=== PATIENT | male | born 1945 | race Caucasian/White ===

== ENCOUNTER 2017-09-12 21:20 | Emergency (ER) | payer BC, MEDICARE ==
[2017-09-13 00:43] VITALS: BP 119/58
--- NOTE | 2017-09-13 06:15 | ED ---
Rachel Johns Nilda, scribed for Zbigniew Kearney MD on 09/13/17 at 0020 . Abdominal Pain/Male - HPI Summary HPI Summary: This patient is a 72 year old M presenting to [facility] accompanied by with a chief complaint of stabbing intermittent swelling and pain in groin that radiates to the penis for several weeks and was exacerbated today. The patient rates the pain 7/10 in severity at its worse but patient currently has no pain. Symptoms aggravated by movement and alleviated by rest. Patient reports fever, but denies chills, burning urination, abnormal bowels, and N/V. Patient had CT scan this morning at [facility] and has not yet seen results. - History of Current Complaint Chief Complaint: EDAbdPain Stated Complaint: PAIN & SWELLING IN RT ABD Time Seen by Provider: 09/13/17 00:14 Hx Obtained From: Patient Onset/Duration: Gradual Onset, Lasting Weeks, Still Present Timing: Intermittent Severity Initially: Severe Severity Currently: None Pain Intensity: 7 Pain Scale Used: 0-10 Numeric Location: Groin Radiates: Yes Radiates to: Other - penis Character: Sharp Aggravating Factor(s): Movement Alleviating Factor(s): Other: - rest Associated Signs And Symptoms: Positive: Other - fever; Patient denies chills, burning urination, abnormal bowels, and N/V. - Allergies/Home Medications Allergies/Adverse Reactions: Allergies Allergy/AdvReac Type Severity Reaction Status Date / Time Atorvastatin [From Lipitor] Allergy Unknown Unknown Verified 09/12/17 21:33 Reaction Details Cephalexin Allergy Unknown Unknown Verified 09/12/17 21:33 Reaction Details Cholestyramine Allergy Unknown Unknown Verified 09/12/17 21:33 [From Questran] Reaction Details Fenofibrate [From Tricor] Allergy Unknown Unknown Verified 09/12/17 21:33 Reaction Details Iodinated Contrast Media Allergy Hives Verified 09/12/17 21:33 [IV CONTRAST DYE] Gabapentin AdvReac Intermediate Muscle Ache Verified 09/12/17 21:33 Pravastatin AdvReac Unknown Pain Verified 09/12/17 21:33 Simvastatin [From Zocor] AdvReac Unknown Pain Verified 09/12/17 21:33 SEASONAL Allergy SNEEZING, Uncoded 09/12/17 21:33 HAYFEVER/ENVIRONMENTAL PMH/Surg Hx/FS Hx/Imm Hx Endocrine/Hematology History: Reports: Hx Anticoagulant Therapy - low dose ASA Denies: Hx Diabetes Cardiovascular History: Reports: Hx Coronary Artery Disease - CHOLESTEROL CONTROL WITH MEDICATION, Hx Hypercholesterolemia, Hx Valvular Heart Disease - [place] VALVE Denies: Hx Hypertension, Hx Pacemaker/ICD Comment Only: Other Cardiovascular Problems/Disorders - CRAMPS AT NIGHT Respiratory History: Reports: Hx Sleep Apnea - new CPAP user, some initial difficulty w/PAP therapy Denies: Hx Asthma GI History: Reports: Hx Gastroesophageal Reflux Disease - NO MEDICATION, Hx Hiatal Hernia, Hx Irritable Bowel - HISTORY OF - RESOLVED ON ITS ON, Hx Ulcer - DUODENUAL ULCER YEARS AGO, PRESENTLY HEALED, Other GI Disorders - ulcers History: Reports: Hx Kidney Stones - PRESENTLY HAS STONES WITH NO PROBLEMS Musculoskeletal History: Reports: Hx Arthritis - GENERALIZED, Hx Tendonitis Sensory History: Reports: Hx Cataracts - HISTORY OF, Hx Contacts or Glasses - GLASSES, Hx Hearing Aid - BILATERAL Opthamlomology History: Reports: Hx Cataracts - HISTORY OF, Hx Contacts or Glasses - GLASSES Neurological History: Reports: Hx Migraine - CONTROL WITH MEDICATION Psychiatric History: Denies: Hx Panic Disorder - Cancer History Cancer Type, 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 - Surgical History Surgery Procedure, Year, and Place: TONSILLECTOMY, 1949, [place]/ANGIOGRAM 5- 10 YEARS AGO, [place]/CYSTOSCOPY WITH LITHOTRIPSY, [facility]/CYSTOSCOPY FOR KIDNEY STONES, [facility]/2011 BILATERAL CATARACT EXTRACTION WITH IOL IMPLANTS, [facility]/RT KNEE MENISCUS REPAIR Hx Anesthesia Reactions: No Infectious Disease History: No Infectious Disease History: Denies: Traveled Outside the [place] in Last 30 Days - Family History Known Family History: Positive: Hypertension, Diabetes - Social History Alcohol Use: Rare Substance Use Type: Reports: None Smoking Status (MU): Never Smoked Tobacco Review of Systems Positive: Fever. Negative: Chills Positive: Other - negative abnormal bowels. Negative: Vomiting, Nausea Positive: other - swelling and pain in groin that radiates to penis. Negative: burning All Other Systems Reviewed And Are Negative: Yes Physical Exam Triage Information Reviewed: Yes Vital Signs On Initial Exam: Initial Vitals Temp Pulse Resp BP Pulse Ox 98.0 F 68 16 132/79 99 09/12/17 21:27 09/12/17 21:27 09/12/17 21:27 09/12/17 21:27 09/12/17 21:27 Vital Signs Reviewed: Yes Appearance: Positive: Well-Appearing, No Pain Distress Skin: Positive: Warm, Skin Color Reflects Adequate Perfusion, Dry Head/Face: Positive: Normal Head/Face Inspection Eyes: Positive: EOMI, YG ENT: Positive: Normal ENT inspection Neck: Positive: Supple, Nontender Respiratory/Lung Sounds: Positive: Clear to Auscultation, Breath Sounds Present Cardiovascular: Positive: RRR, Other - femoral pulses palpable Abdomen Description: Positive: Soft, Other: - Mild tenderness to RLQ, just superior to where femoral artery is palpable; there is no mass felt while laying flat but when standing, there is a bulge that is reducible. Bowel Sounds: Positive: Present Male Genital Exam: Positive: other - scrotal exam normal; testicles are non swollen and non-tender Musculoskeletal: Positive: Normal, Strength/ROM Intact Neurological: Positive: Normal, Sensory/Motor Intact, Alert, Oriented to Person Place, Time Psychiatric: Positive: Affect/Mood Appropriate - [place] Coma Scale Coma Scale Total: 15 Diagnostics - Vital Signs Vital Signs Temp Pulse Resp BP Pulse Ox 09/12/17 23:21 59 100 09/12/17 23:19 127/59 09/12/17 21:27 98.0 F 68 16 132/79 99 - Laboratory Lab Statement: Any lab studies that have been ordered have been reviewed, and results considered in the medical decision making process. Abdominal Pain Fem Course/Dx - Course Course Of Treatment: BP noted and advised to follow up with PCP. Medication and allergies reviewed. ON EXAM, THERE IS A REDUCABLE RT INGUINAL HERNIA THAT IS AT PATIENT'S SITE OF PAIN. F/U SURGERY; RETURN IF WORSE. THIS WAS ALL DISCUSSED WITH THE PATIENT AND HIS , KOFI. - Diagnoses Provider Diagnoses: Right inguinal hernia, Abdominal pain Discharge - Discharge Plan Condition: Stable Disposition: HOME Patient Education Materials: Inguinal Hernia (ED), Abdominal Pain (ED) Referrals: [facility] [Provider Group] Rory Bruce MD [Primary Care Provider] - Avinash Thomson MD [Medical Doctor] - Additional Instructions: FOLLOW UP WITH YOUR PRIMARY CARE DOCTOR AND SURGERY. CALL SURGERY, DR THOMSON, THIS MORNING FOR YOUR RIGHT INGUINAL HERNIA. RETURN TO THE EMERGENCY DEPARTMENT FOR ANY WORSENING OF YOUR CONDITION; PAIN, VOMITING, FEVER, YOU FEEL ILL OR QUESTIONS OR CONCERNS. The documentation as recorded by the scribe, Hermelinda Ramos accurately reflects the service I personally performed and the decisions made by me, Zbigniew Kearney MD.
== END 2017-09-13 00:43 | disposition home or self-care (01) ==
LOC: ED 21:20
DX: K40.90 Unilateral inguinal hernia, without obstruction or gangrene, not specified as recurrent (principal); R10.31 Right lower quadrant pain; R50.9 Fever, unspecified; I25.10 Atherosclerotic heart disease of native coronary artery without angina pectoris; Z79.82 Long term (current) use of aspirin; E78.00 Pure hypercholesterolemia, unspecified; K21.9 Gastro-esophageal reflux disease without esophagitis; Z87.442 Personal history of urinary calculi; G43.909 Migraine, unspecified, not intractable, without status migrainosus; Z85.828 Personal history of other malignant neoplasm of skin; Z98.42 Cataract extraction status, left eye; Z98.41 Cataract extraction status, right eye; Z96.1 Presence of intraocular lens; Z88.8 Allergy status to other drugs, medicaments and biological substances; Z88.1 Allergy status to other antibiotic agents; Z91.041 Radiographic dye allergy status
CPT/HCPCS: 99282

== ENCOUNTER 2017-09-19 06:41 | Day surgery (SDC) | payer BC ==
[~2017-09-19 06:41] MED LIST: Buffered Lidocaine 0.9% SYRIN* 5 ML/SYR SYRINGE INTRADERM ONE; Buffered Lidocaine 0.9% SYRIN* 5 ML/SYR SYRINGE ONE; Levofloxacin 750 MG IVPREMIX(* 750 MG/150 ML BAG ONE
[2017-09-19] MEDS ORDERED: Bupivacaine 0.25% SDV* 30 ML ONE (07:18)
[2017-09-19] MEDS ORDERED: Lidocaine 1% INJ* 10 MG/ML 30 ML SDV ONE (07:19)
[2017-09-19] MEDS ORDERED: Lidocaine 1% MPF wEPI 200,000* 30 ML SDV ONE (07:19)
[2017-09-19] MEDS ORDERED: Bupivacaine 0.5% SDV PF* 30 ML VIAL ONE (07:19)
[2017-09-19] MEDS ORDERED: fentaNYL* 50 MCG/ML 2 ML VIAL (100 MCG VIAL) ONE (07:49)
[2017-09-19] MEDS ORDERED: Propofol* 10 MG/ML 20 ML BTL IV PUSH ONE (07:58)
[2017-09-19] MEDS ORDERED: oxyCODONE/Acetamin 5/325 MG* TAB PO PRN ×2 (08:26→09:38)
[2017-09-19] MEDS ORDERED: Ketorolac INJ* 30 MG/ML 1 ML VIAL IV PRN (08:26)
[2017-09-19 10:09] VITALS: BP 117/60
--- NOTE | 2017-09-20 06:02 | OP ---
CC: [facility]; Dr. Rory Bruce MD, Family Medicine* OPERATIVE REPORT: DATE OF OPERATION: 09/19/17 - SDS. DATE OF : 41. SURGEON: Avinash Thomson MD. JUICE MIXER: SEDRICK Menard ANESTHESIOLOGIST: Dr. Cottrell. ANESTHESIA: Local with monitored anesthesia care. PRE-OP DIAGNOSIS: Right inguinal hernia. POST-OP DIAGNOSIS: Right indirect inguinal hernia. OPERATIVE PROCEDURE: Open repair with Covidien ProGrip polyester mesh of indirect right inguinal hernia. ESTIMATED BLOOD LOSS: Minimal. WOUND CLASSIFICATION: 1. COMPLICATIONS: None. SPECIMENS: None. DRAINS: None. 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 DESCRIPTION OF PROCEDURE: Written and informed consent was obtained, the right groin was marked with indelible ink and preoperative antibiotics were administered. The patient was taken to the operating room and placed in a supine position. Sequential compression devices and a warming blanket were applied. Anesthesia was administered. The right groin and lower abdomen were prepped and draped in the usual sterile fashion. A time-out verification was completed. Initially, 1% lidocaine with 0.25% Marcaine was infiltrated in the right groin and an oblique incision was made several fingerbreadths above the right inguinal crease. The Piero's fascia was divided and the external oblique aponeurosis and external ring were identified. The fibers were opened and the underlying spermatic cord was encircled with a one-quarter inch Yessenia drain at the pubic tubercle. The underlying inguinal floor was identified. The direct space appeared to be normal without evidence of hernia. With careful dissection, I was able to identify an indirect hernia sac that was from the cord structures in usual fashion using combination of careful sharp and blunt dissection. Care was taken to prevent injury to the vas deferens and the vital cord structure as well. There was also a cord lipoma, which was excised up to its neck and removed but not sent for pathology. The internal ring appeared to be somewhat patulous. I was able to easily reduce the peritoneal sac up into the peritoneum without difficulty. The internal ring was then plicated with several 3-0 Polysorb sutures in preparation for mesh placement. The ProGrip Covidien mesh was then placed and sutured to pubic tubercle medially , the conjoint tendon superiorly, the musculature laterally with interrupted 0- Polysorb suture. It was secured to the inguinal ligament inferiorly with a running 0-Vicryl suture. The direct space was covered nicely and the indirect ring was reconstructed well and not felt to be an appropriate size. Hemostasis was assured. Additional Marcaine was infiltrated. The external oblique aponeurosis was closed with a running 0-Vicryl suture. The Piero's fascia was closed with interrupted 3-0 Vicryl suture. The skin was approximated with subcuticular 4-0 Vicryl suture. Steri-Strips and sterile dressings were applied. The patient tolerated the procedure well, was taken to the recovery room in stable condition. [id number]/[facility] #: [id number] TREY
== END 2017-09-19 10:15 | disposition home or self-care (01) ==
LOC: OR 06:41
PROVIDERS: ATTEND Surgery
DX: K40.90 Unilateral inguinal hernia, without obstruction or gangrene, not specified as recurrent (principal); G47.33 Obstructive sleep apnea (adult) (pediatric); E78.00 Pure hypercholesterolemia, unspecified; M19.90 Unspecified osteoarthritis, unspecified site; I73.00 Raynaud's syndrome without gangrene; N40.0 Benign prostatic hyperplasia without lower urinary tract symptoms; Z79.899 Other long term (current) drug therapy
CPT/HCPCS: C1781; J2001; J2704; J3010

== ENCOUNTER 2018-09-29 14:41 | Emergency (ER) | payer BC ==
[2018-09-29 16:09] VITALS: BP 143/71
--- NOTE | 2018-09-29 18:15 | UC ---
Skin Complaint HPI - HPI Summary HPI Summary: Patient had coronary angiogram done 4 days ago in [place]. Yesterday noticed left forearm redness, swelling, tenderness and some intermittent numbness/ tingling in his hand. Patient reports he called his interventional cardiologists office in [place] who advised him to call his local card assembler Dr. Segura. Dr. Segura told him to contact the office in [place] so patient decided to come here to . - History of Current Complaint Chief Complaint: UCUpperExtremity Time Seen by Provider: 09/29/18 17:49 Stated Complaint: ARM SWELLING Hx Obtained From: Patient Onset/Duration: Gradual Onset, Lasting Days - 1 DAY, Still Present Timing: Constant Onset Severity: Moderate Current Severity: Moderate Pain Intensity: 3 Pain Scale Used: 0-10 Numeric Location: Discrete - LEFT FOREARM Character: Swelling, Pain, Redness Aggravating Factor(s): Touch Alleviating Factor(s): Nothing - Allergy/Home Medications Allergies/Adverse Reactions: Allergies Allergy/AdvReac Type Severity Reaction Status Date / Time atorvastatin [From Lipitor] Allergy Pain Verified 09/29/18 16:17 cholestyramine Allergy Unknown Verified 09/29/18 16:17 [From Questran] Reaction Details fenofibrate [From Tricor] Allergy Muscle Ache Verified 09/29/18 16:17 gabapentin Allergy Muscle Ache Verified 09/29/18 16:17 pravastatin Allergy Pain Verified 09/29/18 16:17 simvastatin Allergy Pain Verified 09/29/18 16:17 sucrose [From Questran] Allergy Unknown Verified 09/29/18 16:17 Reaction Details IV contrast Allergy Hives Uncoded 09/29/18 16:17 SEASONAL Allergy SNEEZING, Uncoded 09/29/18 16:17 HAYFEVER/ENVIRONMENTAL Home Medications: Home Medications Amlodipine Besylate [Norvasc 2.5 mg tab] 2.5 mg PO DAILY 09/29/18 [History Confirmed 09/29/18] Review of Systems Constitutional: Negative Skin: Rash Respiratory: Negative Cardiovascular: Negative Gastrointestinal: Negative Musculoskeletal: Edema All Other Systems Reviewed And Are Negative: Yes PMH/Surg Hx/FS Hx/Imm Hx Cardiovascular History: Cardiac Disease GI/ History: Kidney Stones Other History Of: Anticoagulant Therapy - low dose ASA - Surgical History Surgical History: Yes Surgery Procedure, Year, and Place[facility] [place]- 10 [facility] A[facility], [place]/CYSTOSCOPY WITH LITHOTRIPSY, [facility]STOSCOPY FOR [facility]ID[facility] STONES, [facility]/2011 BILATERAL CATARACT EXTRACTION WITH IOL IMPLANTS, [facility]/RT KNEE MENISCUS REPAIR. 2017 inguinal hernia repair. 2018 vocal chord repair - Family History Known Family History: Positive: Hypertension, Diabetes - Social History Alcohol Use: Rare Substance Use Type: None Smoking Status (MU): Never Smoked Tobacco Physical Exam Triage Information Reviewed: Yes Appearance: Well-Appearing, No Pain Distress, Well-Nourished Vital Signs: Initial Vital Signs Temp 98.5 F 09/29/18 16:01 Pulse 81 09/29/18 16:01 Resp 16 09/29/18 16:01 BP 143/71 09/29/18 16:01 Pulse Ox 100 09/29/18 16:01 Vital Signs Reviewed: Yes Eyes: Positive: Conjunctiva Clear ENT: Positive: Hearing grossly normal Neck: Positive: Supple Respiratory: Positive: No respiratory distress, No accessory muscle use Cardiovascular: Positive: Pulses Normal Abdomen Description: Positive: Soft Musculoskeletal: Positive: Other: - LEFT FOREARM VOLAR SURFACE FIRM, SWOLLEN, TENDER AND ERYTHEMATOUS UP TO AC FOSSA Neurological: Positive: Alert Psychological: Positive: Age Appropriate Behavior Skin: Positive: Other - LEFT FOREARM EDEMA Course/Dx - Course Course Of Treatment: Unable to evaluate for clot here due to lack of ultrasound. Patient to go to [facility] by private car for further evaluation. - Diagnoses Provider Diagnoses: LEFT UPPER EXTREMITY EDEMA, ERYTHEMA - Physician Notification/Consults Discussed Patient Care With: Aamir Llanos - TO [facility] BY PRIVATE CAR Time Discussed With Above Provider: 18:10 Instructed by Provider To: MD Will See In ED Discharge - Sign-Out/Discharge Documenting (check all that apply): Patient Departure All imaging exams completed and their final reports reviewed: No Studies - Discharge Plan Condition: Stable Disposition: TRANS HIGHER LVL OF CARE FAC Referrals: Rory Bruce MD [Primary Care Provider] - If Needed Additional Instructions: YOU SHOULD BE EVALUATED FOR CLOT. GO DIRECTLY TO THE [facility] ED FROM HERE FOR FURTHER EVALUATION. YOU HAVE DECLINED TRANSFER TO THE ED BY AMBULANCE. BE ADVISED THAT BY NOT TRAVELING IN A MONITORED SETTING YOU COULD BE RISKING WORSENING OF YOUR CONDITION THAT COULD POSE A THREAT TO YOUR LIFE, HEALTH AND MEDICAL SAFETY. - Billing Disposition and Condition Condition: STABLE Disposition: Trans Higher Lvl of Care Fac
== END 2018-09-29 18:10 | disposition short-term general hospital (02) ==
LOC: UCEAST 14:41
DX: R60.0 Localized edema (principal); L53.9 Erythematous condition, unspecified; Z88.8 Allergy status to other drugs, medicaments and biological substances; Z91.09 Other allergy status, other than to drugs and biological substances; Z91.041 Radiographic dye allergy status
CPT/HCPCS: 99212; G0463

== ENCOUNTER 2018-09-29 19:10 | Emergency (ER) | payer BC ==
[2018-09-29 20:15] LABS: ABS Basophils 0 10^3/ul (0-0.2); ABS Eosinophils 0.1 10^3/ul (0-0.6); ABS Lymphocytes 2.1 10^3/ul (1.0-4.8); ABS Monocytes 0.6 10^3/ul (0-0.8); ABS Nucleated RBC 0 10^3/ul; Eosinophil % 1.6 % (0-6); Hematocrit 44 % (42-52); Hemoglobin 14.9 g/dl (14.0-18.0); Lymphocyte % 26.9 % (25-47); Mean Corpuscular HGB Conc 34 g/dl (31-36); Mean Corpuscular Hemoglobin 33 pg (27-31); Mean Corpuscular Volume 96 fL (80-94); Mean Platelet Volume 8.9 fL (7.4-10.4); Nucleated Red Blood Cells % 0.2; Platelet Count 163 10^3/ul (150-450); Red Blood Count 4.58 10^6/ul (4.00-5.40); Red Cell Distribution Width 13 % (10.5-15); White Blood Count 7.9 10^3/ul (3.5-10.8)
[2018-09-29 20:27] LABS: INR 0.95 (0.77-1.02)
[2018-09-29 20:33] LABS: EGFR Non-African American 111.8 (>60)
--- NOTE | 2018-09-29 21:11 | RAD ---
EXAM: US Left Duplex Upper Extremity Veins, Limited EXAM DATE/TIME: 09/29/2018 8:57 PM CLINICAL HISTORY: 73 years old, male; Pain; Arm; Left; Additional info: Pain, redness S/P cardiac cath left radial TECHNIQUE: Real-time Duplex ultrasound of the Left Upper Extremity with 2-D coon scale, color Doppler flow and spectral waveform analysis. Limited exam focused on the left upper extremity veins. COMPARISON: No relevant prior studies available. FINDINGS: Left deep veins: Normal. Subclavian, axillary, and brachial veins are patent throughout without thrombus. Normal compressibility, augmentation response and Doppler waveforms. Visualized internal jugular and subclavian veins are patent. Left superficial veins: Normal. Visualized cephalic and basilic veins are patent without thrombus. Soft tissues: Normal. IMPRESSION: No acute findings. No evidence of deep vein thrombosis. To contact [facility] with a general question: [facility] - [phone] For direct physician to physician contact: Physician Hotline - [phone] [facility] ([facility] Facility ID #[id number])
[2018-09-29] MEDS ORDERED: Cephalexin CAP* 500 MG PO ONE (21:35)
[2018-09-29] MEDS ORDERED: Ciprofloxacin TAB* 500 MG PO ONE (22:25)
--- NOTE | 2018-09-29 22:27 | ED ---
Skin Complaint - HPI Summary HPI Summary: A 73 y/o male presents to the ED c/o bruising on his left forearm since 2017 when he had a heart cath. He also states to have a TOWNSEND last night and swelling in his forearm. He denies fever, chills, ear pain, sore throat, blurred vision, double vision, neck pain, CP, SOB, ABD pain, back pain, dysuria , hematuria, blood in the stool, constipation, and rashes. - History of Current Complaint Chief Complaint: EDExtremityUpper Time Seen by Provider: 09/29/18 19:53 Stated Complaint: LT ARM SWOLLEN Hx Obtained From: Patient Onset/Duration: Started Days Ago Timing: Constant Onset Severity: Moderate Current Severity: Moderate Pain Intensity: 3 Skin Location: Arm - Allergy/Home Medications Allergies/Adverse Reactions: Allergies Allergy/AdvReac Type Severity Reaction Status Date / Time atorvastatin [From Lipitor] Allergy Pain Verified 09/29/18 16:17 cephalexin Allergy Unknown Verified 09/29/18 22:14 Reaction Details cholestyramine Allergy Unknown Verified 09/29/18 16:17 [From Questran] Reaction Details fenofibrate [From Tricor] Allergy Muscle Ache Verified 09/29/18 16:17 gabapentin Allergy Muscle Ache Verified 09/29/18 16:17 pravastatin Allergy Pain Verified 09/29/18 16:17 simvastatin Allergy Pain Verified 09/29/18 16:17 sucrose [From Questran] Allergy Unknown Verified 09/29/18 16:17 Reaction Details IV contrast Allergy Hives Uncoded 09/29/18 16:17 SEASONAL Allergy SNEEZING, Uncoded 09/29/18 16:17 HAYFEVER/ENVIRONMENTAL PMH/Surg Hx/FS Hx/Imm Hx Endocrine/Hematology History: Reports: Hx Anticoagulant Therapy - low dose ASA Denies: Hx Diabetes Cardiovascular History: Reports: Hx Coronary Artery Disease - CHOLESTEROL CONTROL WITH MEDICATION, Hx Hypercholesterolemia, Hx Valvular Heart Disease - mitral valve prolapse, Other Cardiovascular Problems/Disorders - CRAMPS AT NIGHT Denies: Hx Hypertension, Hx Pacemaker/ICD Respiratory History: Reports: Hx Sleep Apnea Denies: Hx Asthma GI History: Reports: Hx Gastroesophageal Reflux Disease - on meds, Hx Hiatal Hernia, Hx Irritable Bowel - HISTORY OF - RESOLVED ON ITS ON, Hx Ulcer - DUODENUAL ULCER YEARS AGO, PRESENTLY HEALED, Other GI Disorders - ulcers History: Reports: Hx Kidney Stones - PRESENTLY HAS STONES WITH NO PROBLEMS Musculoskeletal History: Reports: Hx Arthritis - GENERALIZED, Hx Tendonitis, Other Musculoskeletal History - disc in lower back causes problems Sensory History: Reports: Hx Cataracts - HISTORY OF, Hx Contacts or Glasses - GLASSES, Hx Hearing Aid - BILATERAL Opthamlomology History: Reports: Hx Cataracts - HISTORY OF, Hx Contacts or Glasses - GLASSES Neurological History: Reports: Hx Migraine - CONTROL WITH MEDICATION, Hx Nerve Disease - Raynaud's disease, Other Neuro Impairments/Disorders - neuropathy - toes, problems with balance Psychiatric History: Denies: Hx Panic Disorder - Cancer History Cancer Type, 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 2017 inguinal hernia repair. 2018 vocal chord repair Hx Anesthesia Reactions: No Infectious Disease History: No Infectious Disease History: Denies: Traveled Outside the [place] in Last 30 Days - Family History Known Family History: Positive: Hypertension, Diabetes - Social History Alcohol Use: Rare Substance Use Type: Reports: None Smoking Status (MU): Never Smoked Tobacco Review of Systems Negative: Fever, Chills Eyes: Negative - double vision Negative: Blurred Vision ENT: Negative - neck pain Negative: Sore Throat, Ear Ache Negative: Chest Pain Negative: Shortness Of Breath Negative: Abdominal Pain Negative: dysuria, hematuria Positive: Edema - left forearm. Negative: Myalgia - back pain Positive: Bruising - left forearm Positive: Headache All Other Systems Reviewed And Are Negative: No Physical Exam - Summary Physical Exam Summary: Appearance: Alert, conversive, nontoxic appearing Skin: bruising swelling red warm on volar aspect of left forearm. HEENT: EOMI, PERRL, moist mucous membranes Neck: No masses on the neck, supple Respiratory: Clear to auscultation, breath sounds present, no rales, no rhonchi , no wheezes Cardiovascular: RRR, pulses are symmetrical in both lower and upper extremities Abdomen: Soft, non-tender Bowel Sounds: Present Musculoskeletal: No CVA tenderness, no obvious deformity, moving all extremities in a grossly normal manner Neurological: A&Ox3, CN II-XII Intact, moving all extremities symmetrically Psychiatric: Normal affect and mood Triage Information Reviewed: Yes Vital Signs On Initial Exam: Initial Vitals Temp Pulse Resp BP Pulse Ox 97.6 F 71 16 158/62 98 09/29/18 19:12 09/29/18 19:12 09/29/18 19:12 09/29/18 19:12 09/29/18 19:12 Vital Signs Reviewed: Yes Diagnostics - Vital Signs Vital Signs Temp Pulse Resp BP Pulse Ox 09/29/18 20:19 71 134/72 98 09/29/18 20:00 69 98 09/29/18 19:50 73 99 09/29/18 19:49 82 162/80 99 09/29/18 19:12 97.6 F 71 16 158/62 98 - Laboratory Lab Results: Lab Results 09/29/18 09/29/18 09/29/18 Range/Units 20:10 20:10 20:10 WBC 7.9 (3.5-10.8) 10^3/ul RBC 4.58 (4.00-5.40) 10^6/ul Hgb 14.9 (14.0-18.0) g/dl Hct 44 (42-52) % MCV 96 H (80-94) fL MCH 33 H (27-31) pg MCHC 34 (31-36) g/dl RDW 13 (10.5-15) % Plt Count 163 (150-450) 10^3/ul MPV 8.9 (7.4-10.4) fL Neut % (Auto) 63.7 (38-83) % Lymph % (Auto) 26.9 (25-47) % [place] % (Auto) 7.2 H (0-7) % Eos % (Auto) 1.6 (0-6) % Baso % (Auto) 0.6 (0-2) % Absolute Neuts (auto) 5.0 (1.5-7.7) 10^3/ul Absolute Lymphs (auto) 2.1 (1.0-4.8) 10^3/ul Absolute Monos (auto) 0.6 (0-0.8) 10^3/ul Absolute Eos (auto) 0.1 (0-0.6) 10^3/ul Absolute Basos (auto) 0 (0-0.2) 10^3/ul Absolute Nucleated RBC 0 10^3/ul Nucleated RBC % 0.2 INR (Anticoag Therapy) 0.95 (0.77-1.02) APTT 32.3 (26.0-36.3) seconds Sodium 140 (135-145) mmol/L Potassium 3.7 (3.5-5.0) mmol/L Chloride 105 (101-111) mmol/L Carbon Dioxide 30 (22-32) mmol/L Anion Gap 5 (2-11) mmol/L BUN 17 (6-24) mg/dL Creatinine 0.69 (0.67-1.17) mg/dL Est GFR ( Amer) 135.3 (>60) Est GFR (Non-Af Amer) 111.8 (>60) BUN/Creatinine Ratio 24.6 H (8-20) Glucose 166 H (70-100) mg/dL Calcium 9.1 (8.6-10.3) mg/dL Total Bilirubin 0.50 (0.2-1.0) mg/dL AST 26 (13-39) U/L ALT 25 (7-52) U/L Alkaline Phosphatase 72 (34-104) U/L Total Protein 6.1 L (6.4-8.9) g/dL Albumin 3.9 (3.2-5.2) g/dL Globulin 2.2 (2-4) g/dL Albumin/Globulin Ratio 1.8 (1-3) Result Diagrams: 09/29/18 20:10 09/29/18 20:10 Lab Statement: Any lab studies that have been ordered have been reviewed, and results considered in the medical decision making process. - Ultrasound No standard instances Ultrasound Interpretation Completed By: Radiologist - venous doppler study: NO acute findings. No evidence of deep vein thrombosis. This report has been reviewed by the ED physician. Course/Dx - Course Course Of Treatment: A 73 y/o male presents to the ED c/o bruising on his left forearm since 09/25/2018 when he had a heart cath. His venous doppler study was negative for DVTs. Pt did not share with us that he was allergic to cephalosporin. At DC he shared he was allergic to Keflex. Patient will be dischared and is agreeble to this plan. Dx: cellulitis. - Diagnoses Provider Diagnoses: Cellulitis Discharge - Sign-Out/Discharge Documenting (check all that apply): Patient Departure - DC - Discharge Plan Condition: Stable Disposition: HOME Prescriptions: Cephalexin CAP* [Keflex CAP*] 500 mg PO TID #15 cap MDD 3 Ciprofloxacin TAB* [Cipro 500 MG TAB*] 500 mg PO BID #14 tab MDD 2 Patient Education Materials: Cellulitis (ED) Referrals: Rory Bruce MD [Primary Care Provider] - Additional Instructions: follow up with your primary care physician. return if worse or any new symptoms. Take all medications as instructed. You may take tylenol for any pain or discomfort. - Billing Disposition and Condition Condition: STABLE Disposition: Home - Attestation Statements Document Initiated by Scribe: Yes Documenting Scribe: Arnel Kulkarni Provider For Whom Aparna is Documenting (Include Credential): Jammie Dawson Scribe Attestation: Arnel Johns, scribed for Jammie Dawson on 10/01/18 at 0908. Scribe Documentation Reviewed: Yes Provider Attestation: The documentation as recorded by the Arnel brennan accurately reflects the service I personally performed and the decisions made by Jammie cunha
[2018-09-29 22:37] VITALS: BP 141/73
== END 2018-09-29 22:37 | disposition home or self-care (01) ==
LOC: ED 19:10
DX: L03.114 Cellulitis of left upper limb (principal); R60.0 Localized edema; R51 Headache
CPT/HCPCS: 36415; 80053; 85025; 85610; 85730; 99283; A9270-GY

== ENCOUNTER 2019-12-07 08:10 | Day surgery (SDC) | payer BC, OTHER ==
[~2019-12-07 08:10] MED LIST changes: -Buffered Lidocaine 0.9% SYRIN* 5 ML/SYR SYRINGE INTRADERM ONE; -Buffered Lidocaine 0.9% SYRIN* 5 ML/SYR SYRINGE ONE; +Buffered Lidocaine 1% SYRIN* 1 ML/SYRINGE INTRADERM ONE; +Lactated Ringers 1000 ML Bag* 1,000 ML IV SCH; -Levofloxacin 750 MG IVPREMIX(* 750 MG/150 ML BAG ONE
[2019-12-07] MEDS ORDERED: Buffered Lidocaine 1% SYRIN* 1 ML/SYRINGE INTRADERM ONE (09:26)
[2019-12-07] MEDS ORDERED: ceFAZolin 2 GM PREMIX in ORs 0 GM/0 ML BAG ONE (09:26)
[2019-12-07] MEDS ORDERED: fentaNYL* 50 MCG/ML 2 ML VIAL (100 MCG VIAL) ONE (10:02)
[2019-12-07] MEDS ORDERED: Bupivacaine 0.25% EPI 200,000* 30 ML SDV ONE (10:54)
[2019-12-07] MEDS ORDERED: Lidocaine 1% INJ* 10 MG/ML 30 ML SDV ONE (10:54)
[2019-12-07] MEDS ORDERED: Ondansetron INJ* 2 MG/ML VIAL ONE (11:06)
[2019-12-07] MEDS ORDERED: Etomidate* 2 MG/ML 10 ML VIAL ONE (11:06)
[2019-12-07] MEDS ORDERED: Dexamethasone IV* 4 MG/ML 1 ML (4 MG) ONE (11:06)
[2019-12-07] MEDS ORDERED: Ketorolac INJ* 30 MG/ML 1 ML VIAL ONE (12:06)
--- NOTE | 2019-12-07 12:23 | BRIEFOPN ---
Brief Operative/Procedure Note - Operation Details Pre-Op Diagnosis: Left inguinal hernia Post-Op Diagnosis: Left inguinal hernia Procedures: Left inguinal hernia repair with mesh Surgeon(s)/Proceduralists: Dr. Thomson. Assist: SEDRICK Ibarra Anesthesia: GETA Estimated Blood Loss: <50cc Findings: As above Specimen(s)/Culture(s) Description: None Complications: None
[2019-12-07 14:02] VITALS: BP 123/87
--- NOTE | 2019-12-07 20:26 | OP ---
CC: Dr. Bruce * DATE OF OPERATION: 12/07/19 - [facility] DATE OF : 41 SURGEON: Avinash Thomson MD INSPECTOR OUTSIDE PRODUCTION: SEDRICK Krishna ANESTHESIOLOGIST: Dr. King. ANESTHESIA: General with local. PRE-OP DIAGNOSIS: Left inguinal hernia. POST-OP DIAGNOSIS: Left indirect inguinal hernia. OPERATIVE PROCEDURE: Open repair with mesh of a left indirect inguinal hernia. ESTIMATED BLOOD LOSS: Minimal. IV FLUIDS: 1 L of crystalloid. SPECIMENS: None. DRAINS: None. WOUND CLASSIFICATION: 1. COMPLICATIONS: None. FINDINGS: Small indirect inguinal hernia. DESCRIPTION OF PROCEDURE: Written informed consent was obtained, the left groin was marked with indelible ink. Preoperative antibiotics were not indicated and were not given. The patient was taken to the operating room, placed in the supine position. Sequential compression devices were placed on the lower extremities and a warming blanket was applied. Anesthesia was administered and the left groin and lower abdomen were prepped and draped in usual sterile fashion. Time-out verification was completed. 0.25% Marcaine mixed with 1% lidocaine was infiltrated in the left groin and an oblique incision was made several fingerbreadths above the inguinal crease. Piero's fascia was divided and the external oblique aponeurosis was identified and opened in the direction of its fibers. The underlying inguinal floor was identified and the spermatic cord and its contents were encircled with 1 quarter-inch [place] drain at the pubic tubercle. Careful evaluation revealed the direct space to be intact without evidence of hernia. I sacrificed the left ilioinguinal nerve, dividing this very far laterally as it descended into the musculature. Careful evaluation of the spermatic cord revealed a small indirect inguinal hernia sac, which was from the cord structures up into the internal ring and reduced. There also was a small lipoma, which I excised from the cord , but not sent for specimen. The ProGrip self-gripping onlay mesh was then placed and sutured to the pubic tubercle with an interrupted 0 Vicryl suture. It was sutured to the musculature superiorly and laterally with several interrupted 0 Vicryl sutures. It was also sutured to the inguinal ligament inferiorly with 0 Vicryl suture. The mesh sat nicely without wrinkling and covered both the direct and indirect spaces nicely and reconstructed the internal ring to the appropriate size. Hemostasis was assured. Additional Marcaine was infiltrated. The external oblique aponeurosis was closed with a running 3-0 Vicryl suture. Piero's fascia was closed with a running 3-0 Vicryl suture. The skin was approximated with subcuticular 4-0 Vicryl suture. Steri-Strips were applied. The patient tolerated the procedure well and was taken to the recovery room in stable condition. [id number]/[facility] #: [id number] [facility]ENTERDanelle
== END 2019-12-07 14:02 | disposition home or self-care (01) ==
LOC: OR 08:10
PROVIDERS: ATTEND Surgery
DX: K40.90 Unilateral inguinal hernia, without obstruction or gangrene, not specified as recurrent (principal); I25.10 Atherosclerotic heart disease of native coronary artery without angina pectoris; R53.82 Chronic fatigue, unspecified; G47.33 Obstructive sleep apnea (adult) (pediatric); G62.9 Polyneuropathy, unspecified; E78.00 Pure hypercholesterolemia, unspecified; I34.0 Nonrheumatic mitral (valve) insufficiency
CPT/HCPCS: C1781; J0690; J1100; J1885; J2405; J3010